=== PATIENT | male | born 1980 | race Caucasian/White ===

== ENCOUNTER 2019-05-29 18:41 | Inpatient (IN) | payer MEDICARE, MEDICAID, SELFPAY ==
[2019-05-29 18:54] VITALS: BP 140/92; PULSE 84; RESP 18; TEMP 36.6; O2SAT 98; BMI 33.5
--- NOTE | 2019-05-29 18:59 | ECG_ITS ---
Measurements Intervals [place] Rate: 75 P: 67 DE: 170 QRS: 46 QRSD: 91 T: 52 QT: 353 QTc: 397 SINUS RHYTHM Compared to ECG 07/23/2018 01:08:38 No significant changes Electronically Signed On 05-30-2019 8:21:28 CDT by Laz Vazquez M.D. [email or web address]
[2019-05-29 19:10] LABS: Basophils # 0.1 10^3/uL (0.0-0.1); Basophils % 0.6 %; Eosinophils # 0.2 10^3/uL (0.0-0.8); Hematocrit 40.8 % (42.0-52.0); Hemoglobin 12.9 g/dL (11.7-16.6); Lymphocytes # 4.2 10^3/uL (0.8-4.8); Lymphocytes % 35.9 %; Mean Corpuscular HGB Conc 31.6 g/dL (30.0-36.0); Mean Corpuscular Hemoglobin 25.9 pg (28.0-34.0); Mean Corpuscular Volume 81.8 fL (80-94); Mean Platelet Volume 11.3 fL (7.4-10.4); Monocytes # 0.7 10^3/uL (0.2-0.9); Monocytes % 5.7 %; Neutrophils # 6.6 10^3/uL (1.8-7.7); Neutrophils % 55.5 %; Nucleated Red Blood Cells % 0 %; Platelet Count 290 10^3/cmm (130-400); Red Blood Count 4.99 10^6/uL (4.1-5.3); Red Cell Distribution Width 16.6 % (12.1-15.1); White Blood Count 11.8 10^3/uL (4.0-10.0)
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
--- NOTE | 2019-05-29 19:30 | PC.NURSE ---
Patient denies suicidal ideation, no extra precautions taken at this time
[2019-05-29 19:51] LABS: Amphetamines Screen Urine Negative (Negative); Barbiturates Screen Urine Negative (Negative); Benzodiazepines Screen Urine Negative (Negative); Cocaine Screen Urine Negative (Negative); Opiate Screen Urine Negative (Negative); PCP Screen Urine Negative (Negative); THC Screen Urine Positive (Negative)
[2019-05-29 19:51] LABS: Alanine Aminotransferase 15 U/L (0-41); Albumin Level 4.7 g/dL (3.5-5.2); Alkaline Phosphatase 83 IU/L (40-130); Anion Gap 17.5 (5-19); Aspartate Amino Transferase 22 U/L (0-40); Blood Urea Nitrogen 12 mg/dL (6-20); Calcium 10.3 mg/dL (8.5-10.5); Carbon Dioxide 23 mmol/L (22-29); Chloride 101 mmol/L (98-107); Globulin 3.5 g/dL (1.3-4.6); Glomerular Filtration Rate 68.5 mL/min (90-130); Glucose 124 mg/dL (65-115); Osmolality Calculated 284 mOsm/kg (285-295); Phenytoin Dilantin 0.8 ug/mL (10-20); Potassium 3.5 mmol/L (3.5-5.1); Sodium 138 mmol/L (136-145); Thyroid Stimulating Hormone 0.84 uIU/mL (0.27-4.20); Total Bilirubin 0.4 mg/dL (0.15-1.2); Total Protein 8.2 g/dL (6.6-8.7); Valproic Acid Level 2.8 mcg/mL (50-100)
[2019-05-29 19:52] LABS: Lithium 0.1 mmol/L (0.6-1.2)
[2019-05-29 19:54] LABS: Acetaminophen < 5.0 ug/mL (10-30); Alcohol Level < 10 mg/dL (0-10); Salicylate < 0.3 mg/dL (3-10)
[2019-05-29 20:59] VITALS: BP 133/84; PULSE 84; RESP 17; TEMP 37.4; O2SAT 97
[2019-05-30] MEDS: acetaminophen 325 mg Tablet 650 MG PO (03:30)
[2019-05-30] MEDS: diphenhydrAMINE 50 mg Capsule PO (03:35)
[2019-05-30 06:00] VITALS: BP 124/84; PULSE 77; RESP 17; TEMP 36.8; O2SAT 97
[2019-05-30] MEDS: nicotine 21 mg Patch 1 PATCH TRANSDERMA (08:47)
[2019-05-30] MEDS: fixodent 39 gm Tube 1 APPLIC DENTAL (09:15)
[2019-05-30 13:11] VITALS: BP 120/80; PULSE 87; RESP 18; TEMP 36.8
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
[2019-05-30 19:59] LABS: Valproic Acid Level 2.8 mcg/mL (50-100)
[2019-05-30 20:59] VITALS: BP 131/91; PULSE 76; RESP 20; TEMP 36.9; O2SAT 97
[2019-05-30] MEDS: propranolol 20 mg Tablet PO (21:00)
[2019-05-30] MEDS: trazodone 50 mg Tablet PO (21:01)
[2019-05-31] MEDS: haloperidol 5 mg Tablet PO ×3 (02:46→21:24)
[2019-05-31 06:00] VITALS: RESP 18
[2019-05-31] MEDS: fixodent 39 gm Tube 1 APPLIC DENTAL (06:10)
--- NOTE | 2019-05-31 07:59 | PC.NURSE ---
PRN HALDOL HALDOL 5MG PO PER PT C/O AGITATION/ANXIETY. WILL CONTINUE TO MONITOR FOR MEDICATION EFFECTIVENESS.
--- NOTE | 2019-05-31 09:00 | PC.NURSE ---
Addendum entered by Le Epstein LPN 05/31/19 10:40: RESPIRATIONS EVEN AND UNLABORED. Original Note: PRN HALDOL FOLLOW UP MEDICATION EFFECTIVE. PATIENT RESTING IN BED. RWE
[2019-05-31] MEDS: propranolol 20 mg Tablet PO ×3 (09:06→21:24)
[2019-05-31] MEDS: nicotine 21 mg Patch 1 PATCH TRANSDERMA (09:06)
[2019-05-31] MEDS: divalproex ER 500 mg Tablet (24H) PO (09:06)
[2019-05-31 13:36] VITALS: BP 125/90; PULSE 78; RESP 78; TEMP 37.3; O2SAT 97
--- NOTE | 2019-05-31 14:05 | PC.SOCIAL ---
Important Medicare Message Reviewed page 1 & 2 of Important Medicare Message with patient, verbalized understanding and signed. Copy in chart and original to patient.
--- NOTE | 2019-05-31 15:31 | P.PN_ITS ---
Subjective NPU Subjective: Interval history: Patient Admits thatHe is primarily here for psychosocial reasons. We discussed his history at length. He tends to minimize mental health issues but it is also true that there is no consistent pattern behind his admissions and observed mental health behaviors. He objects to being characterized as being someone who is explosive or impulsive under emotional influences. He does not endorse the presence of symptoms and signs that would be consistent with nannette. He claims to have no idea what any of the medications are supposed to do that he has been treated with. He does admit to having some unusual perceptions which challenge his reality testing but otherwise does not give specific history of jennifer psychosis. Mental Status Exam MSE Comments: This is a well-nourished, well-developed, white male, with adequate dress, grooming, and eye contact. No abnormal movements. Cooperative with exam in no acute distress. Speech was normal rate and decreased volume. Mood described as anxious; affect congruent. Thought process, organized. Thought content: patient denied any suicidal or homicidal ideation, there were no delusions reported or noted, patient denied any auditory or visual hallucinations. Attention, concentration, and memory appear intact but were not formally tested. He is alert and oriented times three. Insight and judgment are fair. Cognition: Level of Consciousness: Awake, Alert, Appropriate and Follows Commands Patient Cognition Impaired: Yes Ability to Follow Directions: Good Patient Orientation (long list): Person, Place and Time Comprehension Ability: Understands Concepts Hallucination Type: None Delusion Description: Not Present Thought Process: Appropriate Affect: Affect Description: Appropriate Depressive Symptoms: Hopelessness, Increased Anxiety and Unhappiness Behavior: Patient Behavior: Appropriate and Cooperative Speech Pattern: Appropriate and Clear Vitals/I&O/Wt Last Vital Signs Temp 99.1 F 05/31/19 13:36 Pulse 78 05/31/19 13:36 Resp 78 H 05/31/19 13:36 BP 125/90 05/31/19 13:36 Pulse Ox 97 05/31/19 13:36 Weight last 48 hrs Weight 110.733 kg Weight 108.862 kg Data NPU : 05/29/19 19:03 05/29/19 19:03 A&P Assessment and plan (1) Acute anxiety: This is a 38 year old, white male, with a long history of mental health issues and trauma, likely consistent with history of post traumatic reactions, without current jennifer trauma response, who presents with low mood and some responses consistent with personality disorder, with a history of obsessive compulsive disorder, Asperger?s, and other issues in his life, who presents open to considering different medication options. Was able to get collateral information that lamictal has been tried at fairly significant doses. Continue current medication, except: Stop Depakote ER Continue Propranolol 20 mg po tid. Continue Lamictal 25 mg twice a day. Potential benefits and side effects of this medication were discussed in detail including its potential for causing Lara-Steve syndrome. Contingency plan for the development of a rash or Intal oral and unexpected side effects is discontinuation. Encourage individual, group, and milieu therapy. Continue q-15 minute checks for safety. Will work with social work team for appropriate outpatient follow up. Status: Acute (2) Depression: Status: Acute Qualifiers: Depression Type: unspecified Qualified Code(s): F32.9 - Major depressive disorder, single episode, unspecified (3) PTSD (post-traumatic stress disorder): Status: Acute (4) Cluster B personality disorder in adult: Status: Acute Involuntary Hold Information 96 Hour Hold: 96 Hour Involuntary Admission: No Attestations NPU Medical Necessity Statement*: Patient will remain in the hospital another 1-2 nights for medication efficacy and tolerability assessment. 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
[2019-05-31] MEDS: OLANZapine ODT 5 MG TABLET PO (15:41)
--- NOTE | 2019-05-31 15:43 | PC.NURSE ---
PRN ZYPREXA ZYDIS ZYPREXA ZYDIS 5MG PO PER PATIENT C/O ANXIETY. WILL CONTINUE TO MONITOR FOR MEDICATION EFFECTIVENESS.
--- NOTE | 2019-05-31 16:45 | PC.NURSE ---
PRN ZYPREXA ZYDIS FOLLOW UP MEDICATION EFFECTIVE. NO FURTHER C/O ANXIETY.
[2019-05-31] MEDS: lamoTRIgine 25 mg Tablet PO (17:33)
[2019-05-31 21:10] VITALS: BP 112/76; PULSE 63; RESP 21; TEMP 37.1; O2SAT 98
[2019-05-31] MEDS: hyDROXYzine 25 mg Capsule 50 MG PO (21:24)
--- NOTE | 2019-05-31 21:25 | PC.NURSE ---
P given scheduled propranolol, and PRN med per pt request of visteril and haldol to help with sleep.
[2019-06-01 06:00] VITALS: BP 109/74; PULSE 64; RESP 18; TEMP 36.9; O2SAT 99
[2019-06-01] MEDS: lamoTRIgine 25 mg Tablet PO (09:08)
[2019-06-01] MEDS: propranolol 20 mg Tablet PO (09:08)
[2019-06-01] MEDS: nicotine 21 mg Patch 1 PATCH TRANSDERMA (11:20)
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
[2019-06-01 13:10] VITALS: BP 109/74; PULSE 64; RESP 18; TEMP 36.9; O2SAT 99
== END 2019-06-01 13:35 | disposition home or self-care (01) | DRG 880 ==
LOC: ER 19:16 → NP 20:11
PROVIDERS: Admitting Provider Psychiatry & Neurology Psychiatry; Emergency Provider Emergency Medicine; PCP Nurse Practitioner Family; Visit Provider Psychiatry & Neurology Psychiatry
DX: F41.8 Other specified anxiety disorders (principal); F43.11 Post-traumatic stress disorder, acute; F60.89 Other specific personality disorders; F12.10 Cannabis abuse, uncomplicated
CPT/HCPCS: 12345; 36415; 80053; 80156; 80164; 80178; 80185; 80306; 80307; 84443; 85025; 93005; 99284; A9270; Q0163

== ENCOUNTER → 2019-12-21 14:35 | Outpatient (BNVA) | payer MEDICARE, MEDICAID, SELFPAY | PROVIDERS: PCP Nurse Practitioner Family; Visit Provider Internal Medicine | DX: Z11.59 Encounter for screening for other viral diseases (principal); R11.10 Vomiting, unspecified | CPT/HCPCS: 87635 ==

== ENCOUNTER 2019-12-24 09:24 | Day surgery (SDC) | payer MEDICARE, MEDICAID, SELFPAY ==
[2019-12-23 07:48] VITALS: BMI 36.9
--- NOTE | 2019-12-24 09:10 | W.PM.OPSUD ---
Surgery/Procedure H&P Update DATE OF PROCEDURE: December 24, 2019 DATE H&P PERFORMED: 12/21/19 PLANNED PROCEDURE: Operation Date: 12/24/19 10:30 Proposed Procedures p EGD 90114 R11.10(Not Applicable) - Aron Farmer MD
[2019-12-24 09:55] VITALS: BP 125/82; PULSE 89; RESP 18; TEMP 36.8; O2SAT 97
[2019-12-24] MEDS: sodium chloride 0.9% 1,000 ML 30 ML IV (10:00)
--- NOTE | 2019-12-24 10:04 | ANES.PREANE2 ---
Pre-Anesthetic Assessment Pre-Anesthetic Assessment: Height/Weight: Height 1.8 m Weight 120.202 kg Temp Pulse Resp BP Pulse Ox 98.2 F 89 18 125/82 97 12/24/19 09:55 12/24/19 09:55 12/24/19 09:55 12/24/19 09:55 12/24/19 09:55 Preop Diagnosis: egd Proposed Procedure: Operation Date: 12/24/19 10:30 Proposed Procedures p EGD 38084 R11.10(Not Applicable) - Aron Farmer MD Familial anesthetic complications: Woke up during his ECTs Was Beta Elmer taken within 24 hours: Yes Last intake: Intake Last Liquid Date 12/23/19 Last Liquid Time 20:00 Last Solid Date 12/23/19 Last Solid Time 20:00 Social: Social History: Tobacco and No alcohol Exam: Pre-Anes Outpt Exam: alert, oriented x 3 and regular rate & rhythm Additional Exam Findings (including area of procedure): b/l wheeze Airway: Cervical ROM: WNL MP: 3 Dentition: False Pulmonary: Pulmonary: Sleep apnea GI: GI: GERD Metabolic: Metabolic: Morbid obesity Neuropsych: Neuropsych: Anxiety Anesthetic Plan: ASA status: 2 Anesthesia: MAC Risk of > 500 ml blood loss (7ml/kg in children): No Meds/Allergies Current Medications: Current Medications Generic Name Dose Route Start Last Admin Trade Name Freq PRN Reason Stop Dose Admin Sodium Chloride 1,000 mls @ 30 ml s/hr 12/24/19 10:00 12/24/19 10:00 Sodium Chloride 0.9% IV 12/25/19 09:59 30 mls/hr .Q24H AJCEY Administration PFSH Anesthesia PFSH: Medical History (Updated 12/21/19 @ 13:42 by Aron Farmer MD) Irritable bowel syndrome with both constipation and diarrhea Family History Other Heart disease Hypertension Social History Smoking and tobacco status: current every day smoker Alcohol intake: never Household members: family Housing: House Current occupational status: disabled History of recent travel: No Current gender identity: Male Data Anesthesia Cardiac Studies: No Data to Display
[2019-12-24 11:21] VITALS: BP 124/82; PULSE 85; RESP 16; TEMP 36.1; O2SAT 96
[2019-12-24 11:43] VITALS: BP 137/83; PULSE 79; RESP 18; O2SAT 96
--- NOTE | 2019-12-24 11:50 | ANE.PACU2 ---
Inpatient post-anesthesia follow up: Airway intact: Yes Vital signs: Temperature 97 F Pulse Rate 79 Respiratory Rate 18 Blood Pressure 137/83 Pulse Oximetry 96 Oxygen Delivery Me thod Room Air Oxygen Flow Rate Fraction of Inspir ed Oxygen Hydration adequate: Yes Nausea and vomiting: No Pain level: 1 Mental status: Baseline
== END 2019-12-24 11:57 | disposition home or self-care (01) ==
PROVIDERS: PCP Nurse Practitioner Family; Visit Provider Internal Medicine
PROC: 0DJ08ZZ Inspection of Upper Intestinal Tract, Via Natural or Artificial Opening Endoscopic (ICD-10-PCS; CPT 43235; principal; 2019-12-24 10:30)
DX: R11.10 Vomiting, unspecified (principal); G47.30 Sleep apnea, unspecified; K21.9 Gastro-esophageal reflux disease without esophagitis; E66.01 Morbid (severe) obesity due to excess calories; Z68.37 Body mass index [BMI] 37.0-37.9, adult; F41.9 Anxiety disorder, unspecified; F17.210 Nicotine dependence, cigarettes, uncomplicated
CPT/HCPCS: 12345; 43235; J2704; J3010; J7030

== ENCOUNTER 2020-02-28 19:15 | Emergency (ER) | payer MEDICARE, MEDICAID, SELFPAY ==
[2020-02-28 19:24] VITALS: BP 129/85; PULSE 103; RESP 14; TEMP 36.3; O2SAT 98; BMI 38.3
--- NOTE | 2020-02-28 19:56 | ED_ITS ---
HPI - Back Pain/Injury General: Chief Complaint: Back Pain/Injury Stated Complaint: lower back pain Time Seen by Provider: 02/28/20 19:50 History of Present Illness: MD elicited complaint: back pain Pertinent past history: prior back pain Onset (ago): month(s) Timing: intermittent Severity: moderate Similar Symptoms Previously: Yes Quality: dull Location: lumbar spine Radiation: left upper leg Exacerbating factors: movement Relieving factors: immobilization Associated symptoms: Reports no associated symptoms; Deny abdominal pain, chills, fever(s), nausea or vomiting Review of Systems Const: Denies: fever(s), chills or body aches Eyes: Denies: change in vision or blurry vision ENMT: Denies: throat pain or nasal congestion Card: Denies: chest pain or dyspnea on exertion Resp: Denies: dyspnea, productive cough or non-productive cough GI: Denies: abdominal pain, nausea or vomiting : Denies: difficulty urinating Musc: Reports: back pain; Denies: extremity pain Skin/Breast: Denies: rash Neuro: Denies: headache(s) Psych: Denies: anxiety or depression Tang/Lymph: Denies: easy bruising PFSH ED PFSH: Medical History (Updated 02/25/20 @ 12:21 by Jim Jordan MD) Irritable bowel syndrome with both constipation and diarrhea Lumbar disc disease with radiculopathy Family History Other Heart disease Hypertension Social History Smoking and tobacco status: current every day smoker Alcohol intake: never Household members: family Housing: House Current occupational status: disabled History of recent travel: No Current gender identity: Male Physical Exam Const: COMMON NORMALS: no acute distress, average body habitus and patient oriented x3 HENMT: COMMON NORMALS: normocephalic HEAD & SCALP: normal to inspection and normocephalic FACE & SINUS: normal facial exam Eye: COMMON NORMALS: conjunctivae normal GENERAL EYE: appearance normal, both eyes and all related structures CONJUNCTIVA: Yes conjunctivae normal Neck/C-Spine: COMMON NORMALS: no JVD Chest: COMMONS NORMALS: normal inspection of the chest Resp: COMMON NORMALS: normal respiratory effort Cardio: COMMON NORMALS: no JVD GI: COMMON NORMALS: Normal to inspection, nondistended, normoactive bowel sounds present Back/Pelvis: LUMBAR SPINE/LOWER BACK: Yes normal to inspection OTHER: Patient complains of pain with movement left leg he is able ambulate without difficulty Extremity: COMMON NORMALS: normal to inspection and full ROM Neuro: COMMON NORMALS: patient oriented x3 Course Vital Signs: Vital signs: Vital Signs Temperature 97.3 F L 02/28/20 19:24 Pulse Rate 103 H 02/28/20 19:24 Respiratory Rate 14 02/28/20 19:24 Blood Pressure 129/85 02/28/20 19:24 Pulse Oximetry 98 02/28/20 19:24 Discharge Plan Discharge Condition: Good Prescriptions: No Action topiramate [Topamax] 50 mg tablet 50 mg PO BID RF: 0 cyclobenzaprine 10 mg tablet 10 mg PO BID PRN (Reason: muscle spasm) Qty: 14 RF: 0 diclofenac sodium 75 mg tablet,delayed release (DR/EC) 75 mg PO BID Qty: 14 RF: 0 hydrocortisone [Procto-Med HC] 2.5 % cream with perineal applicator 1 applic ND QDAY PRN (Reason: hemorrhoids) Qty: 30 RF: 6 dibucaine 1 % ointment 1 applic topical QID Qty: 30 RF: 4 pantoprazole [Protonix] 40 mg tablet,delayed release (DR/EC) 40 mg PO QDAY Qty: 90 RF: 3 Coding Level of Care Code ED Wellness Nurse Rn for Cricket Mcgowan
[2020-02-28] MEDS: methylPREDNISolone (DEPO) 80 MG/ML INJ 1 mL IM (20:01)
[2020-02-28] MEDS: ketorolac 60 mg/2 mL INJ IM (20:03)
[2020-02-28 20:06] VITALS: PULSE 72; RESP 18; O2SAT 98
== END 2020-02-28 20:07 | disposition home or self-care (01) ==
PROVIDERS: Emergency Provider Nurse Practitioner Family; PCP Nurse Practitioner Family
DX: M54.5 Low back pain (principal); F17.210 Nicotine dependence, cigarettes, uncomplicated
CPT/HCPCS: 12345; 96372; 99281; 99283; J1040; J1885

== ENCOUNTER 2020-03-10 08:38 | Outpatient (CLI) | payer MEDICARE, MEDICAID, SELFPAY ==
--- NOTE | 2020-03-10 08:47 | MR_ITS ---
WS: [id number] MRI LUMBAR SPINE WITH AND WITHOUT CONTRAST. HISTORY: CHRONIC PAIN SYNDROME COMPARISON: 07/28/2008 TECHNIQUE: Sagittal and axial multisequence imaging is submitted. Sagittal and axial T1 fat sat seque nces post-ProHance 17 cc IV. Straightening of the normal lumbar lordosis. Mild disc space narrowing and desiccation at L4-5 and L5 -S1. No marrow edema or fracture. Conus terminates normally at L1. L1-L2: Normal. L2-L3: Normal. L3-L4: Mild annular disc bulging and mild facet and ligamentum flavum hypertrophy. Very mild narrowin g of the foramen. L4-L5: Diffuse annular disc bulging and osteophytic ridging. There is a focal moderate large central disc protrusion which extends into the LEFT lateral recess. Disc is displacing posteriorly the L5 ner ve root. Mild bilateral foraminal stenosis. Mild facet joint arthritis. L5-S1: Diffuse annular disc bulging. Mild osteophytic ridging. Lobulated central broad-based disc pro trusion is contacting the S1 nerve roots bilaterally and extending into the subarticular recesses. Ad ditional moderate bilateral foraminal stenosis. No discitis or osteomyelitis. MR/MR lumbar spine wo/w con [id number] IMPRESSION: 1. Moderate to large central disc protrusion extending into the LEFT lateral r ecess at L4-5 with displacement of the L5 nerve root. This disc protrusion was present on the prior examination but the extent into the LEFT lateral recess bay s increased. 2. Large lobulated central disc protrusion at L5-S1 contacting the S1 nerve ro ots bilaterally and extending into the subarticular recesses. No interval guardado e. 3. Moderate central and bilateral foraminal stenosis at L5-S1.
== END 2020-03-10 08:39 | disposition home or self-care (01) ==
LOC: RADSHAW 08:42
PROVIDERS: PCP Nurse Practitioner Family; Visit Provider Psychologist Group Psychotherapy
DX: G89.4 Chronic pain syndrome (principal); M48.07 Spinal stenosis, lumbosacral region; M51.27 Other intervertebral disc displacement, lumbosacral region; M51.26 Other intervertebral disc displacement, lumbar region
CPT/HCPCS: 72158; A9579

== ENCOUNTER 2020-04-03 11:35 | Outpatient (CLI) | payer MEDICARE, MEDICAID, SELFPAY ==
--- NOTE | 2020-04-03 11:44 | XR_ITS ---
WS: [id number] LUMBAR SPINE FLEXION AND EXTENSION TECHNIQUE: 3 views of the lumbar spine: Lateral neutral, flexion, and extension views. CLINICAL INFORMATION: SPONDYLOLISTHESIS LUMBOSACRAL REGION COMPARISON: None. FINDINGS: S1 is partially lumbarized. Normal lumbar alignment on the neutral view. No instability on the flexion and extension views. Disc space narrowing worse at L4-5 and L5-S1. Mini mal retrolisthesis L4 on L5. Moderate facet arthropathy L5-S1. XR/XR lumbar spine f/e only [id number] IMPRESSION: 1. No instability on flexion extension. 2. Disc space narrowing worse at L4-5 and L5-S1. 3. Moderate facet arthropathy L5-S1.
== END 2020-04-03 11:36 | disposition home or self-care (01) ==
LOC: RADWPI 11:42
PROVIDERS: PCP Nurse Practitioner Family; Visit Provider Nurse Practitioner
DX: M43.17 Spondylolisthesis, lumbosacral region (principal); M47.817 Spondylosis without myelopathy or radiculopathy, lumbosacral region
CPT/HCPCS: 72120

== ENCOUNTER 2020-07-08 11:28 | Inpatient (IN) | payer MEDICARE, MEDICAID, SELFPAY ==
[2020-07-08 11:33] VITALS: BP 130/96; PULSE 94; RESP 18; TEMP 36.4; O2SAT 98; BMI 36.2
[2020-07-08 11:50] LABS: Basophils # 0.1 10^3/uL (0.0-0.1); Basophils % 0.8 %; Eosinophils # 0.3 10^3/uL (0.0-0.8); Eosinophils % 2.6 %; Hematocrit 40.7 % (42.0-52.0); Hemoglobin 12.7 g/dL (11.7-16.6); Lymphocytes # 3.2 10^3/uL (0.8-4.8); Lymphocytes % 30.5 %; Mean Corpuscular HGB Conc 31.2 g/dL (30.0-36.0); Mean Corpuscular Hemoglobin 24.7 pg (28.0-34.0); Mean Platelet Volume 10.5 fL (7.4-10.4); Monocytes # 0.8 10^3/uL (0.2-0.9); Monocytes % 7.2 %; Neutrophils % 58.5 %; Nucleated Red Blood Cells % 0 %; Platelet Count 328 10^3/cmm (130-400); Red Blood Count 5.15 10^6/uL (4.1-5.3); Red Cell Distribution Width 17.7 % (12.1-15.1); White Blood Count 10.6 10^3/uL (4.0-10.0)
--- NOTE | 2020-07-08 12:04 | W.ED.PSYCH ---
HPI - Psych General: Chief Complaint: Psychiatric Symptoms Stated Complaint: SI Time Seen by Provider: 07/08/20 11:32 History of Present Illness: HPI Narrative: The patient is a 39-year-old male with past medical history depression who comes to the ER complaining that he was arguing with his mother this morning and said he did not feel like living anymore. His mother called the police who arrived and he mentioned to them that he felt suicidal as well. In the ED he denies feeling that way however he does feel depressed. He mentions he has a child who a month ago which has been stressing him and he has not been dealing with it appropriately. Admits to marijuana use. No alcohol or other drugs. MD complaint: feels depressed Duration: constant History of same: Yes Relieving factors: none Exacerbating factors: none Context: recent drug abuse (thc) and significant life stressor Associated psychiatric symptoms: depression and suicidal ideation Associated symptoms: Reports depression and suicidal ideation Review of Systems General: Reports: 10 or more systems reviewed and unremarkable except in HPI and below Const: Denies: fatigue Eyes: Denies: change in vision, blurry vision or eye redness ENMT: Denies: throat pain, swelling of lips/tongue, ear or mastoid pain or nasal congestion Card: Denies: chest pain, palpitations, irregular heart rhythm, edema, dyspnea on exertion or orthopnea Resp: Denies: dyspnea, productive cough or non-productive cough GI: Denies: abdominal pain, diarrhea or GI cramping : Denies: flank pain, urinary frequency or urinary urgency Musc: Denies: neck pain, back pain, extremity pain, joint pain, joint redness, limited range of motion or muscle weakness Skin/Breast: Denies: rash, pruritus, erythema, skin pain or skin tenderness Neuro: Denies: headache(s), numbness in extremities, weakness in extremities, sensory changes, difficulty walking, dizziness, confusion or Slurred speech present Psych: Reports: depression and suicidal ideation Endo: Denies: polyuria All/Imm: Denies: urticaria, throat swelling or tongue swelling PFS ED PFSH: Medical History (Updated 07/08/20 @ 12:11 by Kyle Recinos MD) Irritable bowel syndrome with both constipation and diarrhea Lumbar disc disease with radiculopathy Family History Other Heart disease Hypertension Social History Smoking and tobacco status: current every day smoker Alcohol intake: never Household members: family Housing: House Current occupational status: disabled History of recent travel: No Current gender identity: Male Physical Exam Const: COMMON NORMALS: no acute distress, average body habitus, patient oriented x3, no limitations, healthy appearing, alert and well nourished GENERAL APPEARANCE: cooperative, comfortable, well kempt and well developed ORIENTATION/CONSCIOUSNESS: Yes awake, Yes oriented to person, Yes oriented to place and Yes oriented to time HENMT: COMMON NORMALS: normocephalic, external ears normal and Normal external nose present HEAD & SCALP: normal to inspection and normocephalic NOSE: Normal external nose present EXTERNAL EAR: Yes external ears normal MOUTH: Normal oral and palatal mucosa present THROAT: posterior oropharynx normal Eye: COMMON NORMALS: Equal, round and reactive pupils present and EOMs intact bilaterally GENERAL EYE: appearance normal, both eyes and all related structures PUPIL: Yes Equal, round and reactive pupils present Neck/C-Spine: COMMON NORMALS: full ROM, no lymphadenopathy, no meningeal signs and no JVD GENERAL: Yes normal visual inspection Lymph: LYMPHATIC: no lymphadenopathy noted Chest: COMMONS NORMALS: normal inspection of the chest and normal palpation of entire chest wall Resp: COMMON NORMALS: normal respiratory effort, No retractions, No use of accessory muscles, clear to auscultation bilaterally and percussion normal EFFORT & INSPECTION: Yes able to speak in complete sentences AUSCULTATION: clear to auscultation bilaterally PERCUSSION: percussion normal Cardio: COMMON NORMALS: no JVD, regular rate, regular rhythm, S1 normal heart sound present, S2 normal heart sound present and Peripheral pulses 2+ throughout RATE: regular rate RHYTHM: regular rhythm HEART SOUNDS: S1 normal heart sound present and S2 normal heart sound present PERIPHERAL PULSES: Peripheral pulses 2+ throughout GI: COMMON NORMALS: Normal to inspection, nondistended, normoactive bowel sounds present, Soft to palpation, non-tender and no masses INSPECTION: Yes normal to inspection PALPATION: Yes Soft to palpation : COMMON NORMALS: Yes no CVA tenderness BLADDER/KIDNEY EXAM: Yes no CVA tenderness Back/Pelvis: COMMON NORMALS: no CVA tenderness, thoracic and lumbar spine normal to inspection, no thoracic nor lumbar tenderness and thoraco-lumbar ROM normal Extremity: COMMON NORMALS: normal to inspection, full ROM, capillary refill normal, no joint enlargement and no pedal edema GENERAL: Yes normal exam except as noted Neuro: COMMON NORMALS: patient oriented x3, CN's II-XII intact bilaterally, moves all extremities, no focal motor deficits, no sensory deficits noted and gait normal SENSORIUM/ORIENTATION: Yes alert, Yes oriented to person, Yes oriented to place and Yes oriented to time MENINGEAL SIGNS: Yes no meningeal signs Psych: COMMON NORMALS: mental status grossly normal, Normal thought process present, cooperative, normal affect and speech normal APPEARANCE: Yes well kempt ATTITUDE: Yes calm SPEECH: Yes normal speech THOUGHT PROCESS: Normal thought process present Skin: COMMON NORMALS: no rashes or lesions noted GENERAL SKIN EXAM: no rashes or lesions noted Course Vital Signs: Vital signs: Vital Signs Temperature 97.5 F L 07/08/20 11:33 Pulse Rate 94 07/08/20 11:33 Respiratory Rate 18 07/08/20 11:33 Blood Pressure 130/96 07/08/20 11:33 Pulse Oximetry 98 07/08/20 11:33 MDM - Psych MDM Narrative: Medical decision making narrative: The patient comes to the ER complaining of depression. At home he got in an argument with his mother and admitted he felt suicidal. She called the police and he admitted suicidal thoughts to them as well. In the ED he denies it. He has a significant life stressor one of his children tragically a month ago and he has not been dealing with it appropriately. Police filled out 96-hour paperwork. He will be admitted. Dr. Sebastian accepts for care. Lab Data: Labs: Lab Results 07/08/20 07/08/20 07/08/20 Range/Units 11:42 11:42 11:52 WBC 10.6 H (4.0-10.0) 10^3/ uL RBC 5.15 (4.1-5.3) 10^6/u L Hgb 12.7 (11.7-16.6) g/dL Hct 40.7 L (42.0-52.0) % MCV 79.0 L (80-94) fL MCH 24.7 L (28.0-34.0) pg MCHC 31.2 (30.0-36.0) g/dL RDW 17.7 H (12.1-15.1) % Plt Count 328 (130-400) 10^3/c mm MPV 10.5 H (7.4-10.4) fL Neut % (Auto) 58.5 % Lymph % (Auto) 30.5 % [place] % (Auto) 7.2 % Eos % (Auto) 2.6 % Baso % (Auto) 0.8 % Neut # (Auto) 6.20 (1.8-7.7) 10^3/u L Lymph # (Auto) 3.2 (0.8-4.8) 10^3/u L [place] # (Auto) 0.8 (0.2-0.9) 10^3/u L Eos # (Auto) 0.3 (0.0-0.8) 10^3/u L Baso # (Auto) 0.1 (0.0-0.1) 10^3/u L Nucleated RBC % (a uto) 0 % Nucleated RBCs # 0.0 /100WBC Sodium 139 (136-145) mmol/L Potassium 3.5 (3.5-5.1) mmol/L Chloride 104 (98-107) mmol/L Carbon Dioxide 21 L (22-29) mmol/L Anion Gap 17.5 (5-19) BUN 11 (6-20) mg/dL Creatinine 1.1 (0.7-1.2) mg/dL GFR Calculation 75.3 L (90-130) mL/min Glucose 111 (65-115) mg/dL Calculated Osmolal ity 288 (285-295) mOsm/k g Calcium 9.5 (8.5-10.5) mg/dL Total Bilirubin 0.4 (0.15-1.2) mg/dL AST 26 (0-40) U/L ALT 22 (0-41) U/L Alkaline Phosphata se 78 (40-130) IU/L Total Protein 8.2 (6.6-8.7) g/dL Albumin 4.7 (3.5-5.2) g/dL Globulin 3.5 (1.3-4.6) g/dL TSH 0.90 (0.27-4.20) uIU/ mL Urine Color Yellow (Yellow) Urine Appearance Hazy A (CLEAR) Urine pH 6 (5-7) Ur Specific Gravit y 1.015 (1.005-1.030) Urine Protein Trace (Negative) Urine Glucose (UA) Norm (Normal) Urine Ketones Negative (Negative) Urine Blood Neg (Negative) Urine Nitrate Negative (Negative) Urine Bilirubin Neg (Negative) Urine Urobilinogen Norm (Negative) mg/dL Ur Leukocyte Amelie ase Negative (Negative) Urine RBC Rare (0-2) /hpf Urine WBC 0-4 H (0-5) /hpf Ur Squamous Epith Cells Rare (0-5) /hpf Amorphous Sediment Not Reportable Urine Bacteria Trace (NONE) /hpf Urine Mucus 1+ /hpf Salicylates < 0.3 L (3-10) mg/dL Urine Opiates Scre en (Negative) ng/mL Acetaminophen < 5.0 L (10-30) ug/mL Ur Barbiturates Sc reen (Negative) ng/mL Ur Phencyclidine S crn (Negative) ng/mL Ur Amphetamines Sc reen (Negative) ng/mL U Benzodiazepines Scrn (Negative) ng/mL Urine Cocaine Scre en (Negative) ng/mL U Marijuana (THC) Screen (Negative) ng/mL Ethyl Alcohol < 10 (0-10) mg/dL 07/08/ Range/Units 11:52 WBC (4.0-10.0) 10^3/ uL RBC (4.1-5.3) 10^6/u L Hgb (11.7-16.6) g/dL Hct (42.0-52.0) % MCV (80-94) fL MCH (28.0-34.0) pg MCHC (30.0-36.0) g/dL RDW (12.1-15.1) % Plt Count (130-400) 10^3/c mm MPV (7.4-10.4) fL Neut % (Auto) % Lymph % (Auto) % [place] % (Auto) % Eos % (Auto) % Baso % (Auto) % Neut # (Auto) (1.8-7.7) 10^3/u L Lymph # (Auto) (0.8-4.8) 10^3/u L [place] # (Auto) (0.2-0.9) 10^3/u L Eos # (Auto) (0.0-0.8) 10^3/u L Baso # (Auto) (0.0-0.1) 10^3/u L Nucleated RBC % (a uto) % Nucleated RBCs # /100WBC Sodium (136-145) mmol/L Potassium (3.5-5.1) mmol/L Chloride (98-107) mmol/L Carbon Dioxide (22-29) mmol/L Anion Gap (5-19) BUN (6-20) mg/dL Creatinine (0.7-1.2) mg/dL GFR Calculation (90-130) mL/min Glucose (65-115) mg/dL Calculated Osmolal ity (285-295) mOsm/k g Calcium (8.5-10.5) mg/dL Total Bilirubin (0.15-1.2) mg/dL AST (0-40) U/L ALT (0-41) U/L Alkaline Phosphata se (40-130) IU/L Total Protein (6.6-8.7) g/dL Albumin (3.5-5.2) g/dL Globulin (1.3-4.6) g/dL TSH (0.27-4.20) uIU/ mL Urine Color (Yellow) Urine Appearance (CLEAR) Urine pH (5-7) Ur Specific Gravit y (1.005-1.030) Urine Protein (Negative) Urine Glucose (UA) (Normal) Urine Ketones (Negative) Urine Blood (Negative) Urine Nitrate (Negative) Urine Bilirubin (Negative) Urine Urobilinogen (Negative) mg/dL Ur Leukocyte Amelie ase (Negative) Urine RBC (0-2) /hpf Urine WBC (0-5) /hpf Ur Squamous Epith Cells (0-5) /hpf Amorphous Sediment Urine Bacteria (NONE) /hpf Urine Mucus /hpf Salicylates (3-10) mg/dL Urine Opiates Scre en Negative (Negative) ng/mL Acetaminophen (10-30) ug/mL Ur Barbiturates Sc reen Negative (Negative) ng/mL Ur Phencyclidine S crn Negative (Negative) ng/mL Ur Amphetamines Sc reen Negative (Negative) ng/mL U Benzodiazepines Scrn Positive H (Negative) ng/mL Urine Cocaine Scre en Negative (Negative) ng/mL U Marijuana (THC) Screen Positive H (Negative) ng/mL Ethyl Alcohol (0-10) mg/dL Discharge Plan Discharge Patient Disposition: Admitted As Inpatient Admit Provider: Riccardo Sebastian Clinical Impression: Suicidal ideation, Depression Condition: Stable Coding Level of Care Code ED [employer] for Chg Fwd Exam Comprehensive
[2020-07-08 12:10] LABS: Amphetamines Screen Urine Negative (Negative); Barbiturates Screen Urine Negative (Negative); Benzodiazepines Screen Urine Positive (Negative); Cocaine Screen Urine Negative (Negative); Opiate Screen Urine Negative (Negative); PCP Screen Urine Negative (Negative); THC Screen Urine Positive (Negative)
[2020-07-08 12:21] LABS: Add Urine Microscopic? YES; Bilirubin Urine Neg (Negative); Blood Urine Neg (Negative); Glucose Urine UA Norm (Normal); Ketones Urine Negative (Negative); Leukocyte Esterase Urine Negative (Negative); Nitrate Urine Negative (Negative); Protein Urine Trace (Negative); Specific Gravity, Urine 1.015 (1.005-1.030); Urine Appearance Hazy (CLEAR); Urine Color Yellow (Yellow); Urobilinogen Urine Norm (Negative); pH Urine 6 (5-7)
[2020-07-08 12:23] LABS: Add Urine Culture? No; Bacteria Urine TRACE /hpf; Mucus Urine 1+ /hpf; RBC Urine RARE /hpf (0-2); Squamous Epithelial Cell Urine RARE /hpf (0-5); WBC Urine 0-4 /hpf (0-5)
[2020-07-08 12:29] LABS: Alanine Aminotransferase 22 U/L (0-41); Albumin Level 4.7 g/dL (3.5-5.2); Alkaline Phosphatase 78 IU/L (40-130); Anion Gap 17.5 (5-19); Aspartate Amino Transferase 26 U/L (0-40); Blood Urea Nitrogen 11 mg/dL (6-20); Calcium 9.5 mg/dL (8.5-10.5); Carbon Dioxide 21 mmol/L (22-29); Chloride 104 mmol/L (98-107); Globulin 3.5 g/dL (1.3-4.6); Glomerular Filtration Rate 75.3 mL/min (90-130); Glucose 111 mg/dL (65-115); Osmolality Calculated 288 mOsm/kg (285-295); Potassium 3.5 mmol/L (3.5-5.1); Sodium 139 mmol/L (136-145); Total Bilirubin 0.4 mg/dL (0.15-1.2); Total Protein 8.2 g/dL (6.6-8.7)
[2020-07-08 12:31] LABS: Acetaminophen < 5.0 ug/mL (10-30); Alcohol Level < 10 mg/dL (0-10); Salicylate < 0.3 mg/dL (3-10)
[2020-07-08 13:29] VITALS: BP 141/99; PULSE 81; RESP 16; O2SAT 99
[2020-07-08 14:22] VITALS: BP 136/100; PULSE 82; RESP 20; TEMP 37; O2SAT 97
[2020-07-08 20:11] VITALS: BP 129/87; PULSE 93; RESP 18; TEMP 36.4; O2SAT 96
[2020-07-08] MEDS: trazodone 50 mg Tablet PO (20:37)
[2020-07-08] MEDS: OLANZapine 5 mg ODT PO (20:37)
--- NOTE | 2020-07-08 20:40 | PC.NURSE ---
Pt noted with increased anxiety over family issues. Charge Nurse doing shift assessment, requested pt be given zyprexa 5mg po for anxiety and trazodone 50mg po to help pt sleep.
--- NOTE | 2020-07-08 21:45 | PC.NURSE ---
Pt noted to resting quietly with both eyes closed at this time.
--- NOTE | 2020-07-09 00:13 | PC.NURSE ---
Addendum entered by Mikala Albarado RN 07/09/20 00:34: Pt tolerated Zyprexa Zydis 5mg PO and Trazodone 50mg PO well. He is no longer tearful and is asleep at this time. Original Note: PM Assessment PT is resting in his room at time of assessment, he is laying in the dark, facing the wall, verbally able to get his attention. Pt sat on the edge of the bed, he is tearful, withdrawn, appears sad. Denies SI/HI, states, I'm depressed. Pt is rocking, upset, and has isolated since he was admitted on the unit this afternoon. Offered pt a snack, initially refused, but accepted propr to end of interaction. Pt sat up, his NPU scrub top is intentionally torn all the way down to the last seam, pt said he did not mean to tear it but couldn't help it. Pt is angry, confused, feels hopeless, and says he can not grieve. Pt does not feel that he belongs anywhere, informed nurse of his diagnosis of autism spectrum disorder and the recent loss of his child. One of his small children shot the other while playing cowboys and indians, the patient said, What child dies playing cowboys and Indians in 2020 . Pt is angry at the ex-girlfriend, says she neglected my son, she has the other one also, and she treats them differently than her children from this current relationship. He is angry that she has not allowed his attendance at the of the child, and the limited interaction allowed with his other son.Pt became angry, red in the face, stated, They tried to change his last name, they put the other kamran name on [employer]! He broke down in tears, gasping, holding his left side while nearly hyperventilating. Nurse de-escalated pt, sat with him in silence, evaluated his breathing pattern, and his level of escalation. Med nurse came into the room, RN offered medication for anxiety and sleep. Pt agreed to take Zyprexa Zydis to stop the racing thoughts and trazodone to help him rest. Med nurse administered these PO medications, and pt began to calm some. Pt has a difficult time communicating, worries that he is not understood, and stated, I can not give you much information, I don't communicate in sound bites when Nurse clarified what he meant by this, pt stated, IF I start to talk, it will just keep coming out, one subject, then another, and it wont stop. Pt states, My thoughts never stop, they continue and I can not sleep. Insomnia has been an issue for this pt since 2018. Pt is frustrated by the 96hr order, I do not understand why my mom put me in this unit. then began to sob loudly, shaking uncontrollably, and leaned into nurses arms seeking human touch. Pt says, Why can't she(MOM) hold me, hug me, or even look me in the eye? Pt mood changed from grief to anger, She killed my son with neglect, because he is like me, and she knows it. Spoke for several minutes, evaluated his condition, and pt his expressed loss of sleep. He talked about feeling fearful of what will become of him, if I lost my mother. Pt struggles to understand and react to social cues. He feels like he can not trust anyone because he can not tell if they are sincere or trying to take advantage of him. Pt is polite, a little guarded at this time, stated he does not want to take alot of medications. Nurse validated his statement, Provided bathing necessities, new scrubs, and increased rounding on pt. He is sleeping at this time.
[2020-07-09 06:00] VITALS: BP 137/96; PULSE 100; RESP 17; TEMP 36.7; O2SAT 97
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
[2020-07-09 14:00] VITALS: BP 127/88; PULSE 95; RESP 18; TEMP 37.2; O2SAT 97
[2020-07-09] MEDS: trazodone 50 mg Tablet PO (20:26)
[2020-07-09] MEDS: OLANZapine 5 mg ODT PO (20:26)
[2020-07-09 20:46] VITALS: BP 128/78; PULSE 81; RESP 15; TEMP 36.6; O2SAT 97
--- NOTE | 2020-07-09 21:30 | PC.NURSE ---
Pt stated he rested so well last son, requested if he could have the same meds if possible Stated he hasn't slept that well in a long time. Zyprexa 5mg po for anxiety, and Trazodone 50mg po for sleep given.
--- NOTE | 2020-07-09 21:44 | PC.NURSE ---
Pt is in room resting quietly with both eyes closed.
[2020-07-10 06:00] VITALS: BP 129/81; PULSE 98; RESP 15; TEMP 36.3; O2SAT 97
--- NOTE | 2020-07-10 10:30 | PM.NPN ---
Subjective NPU Subjective: Interval history: Mendoza presents today reporting that there are no significant changes. He continues to have a little interest in moving forward on any specific medication. I discussed my review of his records which suggest that he has been on many medications though the most recent one with Dr. Montague was Lamictal is unclear that he never had a clear trial of the medication. I was able to see in his last physicians record to [facility] the issues brought up about getting a second opinion. And there were concerns about him not being forthright with information leading to errant diagnoses. He reports that eating and sleeping okay. Mental Status Exam MSE Comments: This is a well-nourished, well-developed, white male, with hospitalist on with adequate grooming, and eye contact. No abnormal movements. Cooperative with exam in no acute distress. Speech was normal rate and decreased volume. Mood described as okay I guess; affect slightly subdued. Thought process, organized. Thought content: patient denied any suicidal or homicidal ideation, there were no delusions reported or noted, patient denied any auditory or visual hallucinations. Attention, concentration, and memory appear intact but none were formally tested. He is alert and oriented times three. Insight and judgment are fair, impulse control appears limited. Vitals/I&O/Wt Last Vital Signs Temp 97.4 F L 07/10/20 06:00 Pulse 98 07/10/20 06:00 Resp 15 07/10/20 06:00 BP 129/81 07/10/20 06:00 Pulse Ox 97 07/10/20 06:00 Weight last 48 hrs Weight 117.934 kg Weight 117.934 kg Data NPU : 07/08/20 11:42 07/08/20 11:42 A&P Additional A&P Information (1) Suicidal ideation: (2) Depression: (3) Cluster B personality disorder in adult: (4) Bereavement: (5) Parent-child relational problem: (6) Partner relational problem: Additional A&P Information This is a 39-year-old white male with a long history of mental health and addiction issues who presents on a 96-hour hold against the backdrop of conflict with his significant others in his life as well as dealing with the recent sudden of his son with some reported changes in his treatment not currently on medication. 1. Continue current medication. We will continue to explore possible medications. 2. Continue every 15 minute checks for safety. 3. Encourage individual, group and milieu therapies. 4. Encourage sober living treatment after discharge at the highest level of care to which he is willing to commit. 5. We will get collateral information and determine the need for forced hospitalization in keeping with his 96-hour hold. Involuntary Hold Information 96 Hour Hold: 96 Hour Involuntary Admission: Yes 96 Hour Hold Ending Date: 07/14/20 96 Hour Hold Ending Time: 12:01 Attestations NPU Medical Necessity Statement*: Inpatient hospitalization is medically necessary and the clinically appropriate intervention at this time. We will monitor medications and make changes as indicated. Likely length of stay 1-3 days. Coding Level of Care Code Acute Cement Mason Maintenance for Cricket Mcgowan
[2020-07-10 13:07] VITALS: BP 129/85; PULSE 86; RESP 16; TEMP 36.8; O2SAT 96
--- NOTE | 2020-07-10 18:13 | PC.RESP ---
Smoking Cessation information sent to patient.
[2020-07-10 20:05] VITALS: BP 122/87; PULSE 88; RESP 16; TEMP 36.9; O2SAT 96
[2020-07-11] MEDS: hyDROXYzine 25 mg Capsule 50 MG PO (02:42)
--- NOTE | 2020-07-11 02:42 | PC.PHAR ---
PRN Visteril 50mg PO given for anxiety. Pt is returning to bed. Will reassess pt condition for effectiveness of medication
[2020-07-11 06:00] VITALS: BP 122/88; PULSE 88; RESP 15; TEMP 36.3; O2SAT 98
[2020-07-11] MEDS: fixodent 39 gm Tube 1 APPLIC DENTAL (06:11)
--- NOTE | 2020-07-11 08:36 | PC.SOCIAL ---
*IMM* Patient was gave the important message from Medicare. Initialled and placed in the chart.
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
[2020-07-11 16:18] VITALS: BP 122/88; PULSE 88; RESP 15; TEMP 36.3; O2SAT 98
== END 2020-07-11 16:30 | disposition home or self-care (01) | DRG 881 ==
LOC: ER 12:11 → NP 13:20
PROVIDERS: Admitting Provider Psychiatry & Neurology Psychiatry; Emergency Provider Family Medicine; PCP Nurse Practitioner Family; Visit Provider Psychiatry & Neurology Psychiatry
DX: F32.9 Major depressive disorder, single episode, unspecified (principal); R45.851 Suicidal ideations; F12.10 Cannabis abuse, uncomplicated; K58.2 Mixed irritable bowel syndrome; M54.16 Radiculopathy, lumbar region; Z63.0 Problems in relationship with spouse or partner; Z63.8 Other specified problems related to primary support group; Z62.820 Parent-biological child conflict; Z63.4 Disappearance and death of family member; I10 Essential (primary) hypertension; F17.210 Nicotine dependence, cigarettes, uncomplicated; F60.89 Other specific personality disorders
CPT/HCPCS: 80053; 80306; 80307; 81001; 84443; 85025; 99285

== ENCOUNTER → 2021-03-06 09:32 | Outpatient (BNVA) | payer MEDICARE, MEDICAID, SELFPAY | PROVIDERS: PCP Nurse Practitioner Family; Visit Provider Psychiatry & Neurology Psychiatry | DX: F43.10 Post-traumatic stress disorder, unspecified (principal); F32.A Depression, unspecified; F84.0 Autistic disorder; F60.7 Dependent personality disorder | CPT/HCPCS: 90792 ==

== ENCOUNTER → 2021-04-20 11:22 | Outpatient (BNVA) | payer MEDICARE, MEDICAID, SELFPAY | PROVIDERS: PCP Nurse Practitioner Family; Visit Provider Surgery | DX: Z11.52 Encounter for screening for COVID-19 (principal) | CPT/HCPCS: 87635 ==

== ENCOUNTER → 2021-05-01 13:50 | Outpatient (BNVA) | payer MEDICARE, MEDICAID, SELFPAY | PROVIDERS: PCP Nurse Practitioner Family; Visit Provider Psychiatry & Neurology Psychiatry | DX: F32.9 Major depressive disorder, single episode, unspecified (principal); F43.10 Post-traumatic stress disorder, unspecified; F84.0 Autistic disorder; F60.9 Personality disorder, unspecified; F60.7 Dependent personality disorder | CPT/HCPCS: 99214 ==

== ENCOUNTER → 2021-05-04 09:18 | Outpatient (BNVA) | payer MEDICARE, MEDICAID, SELFPAY | PROVIDERS: PCP Nurse Practitioner Family; Visit Provider Surgery | DX: Z11.52 Encounter for screening for COVID-19 (principal) | CPT/HCPCS: 87635 ==

== ENCOUNTER 2021-05-10 06:58 | Day surgery (SDC) | payer MEDICARE, MEDICAID, SELFPAY ==
[2021-05-09 12:33] VITALS: BMI 32.8
--- NOTE | 2021-05-09 12:39 | PC.NURSE ---
Patient states that they see someone from [facility] [place] and declines to answer the questions for suicide assessment.
[2021-05-10 07:10] VITALS: BP 144/104; PULSE 79; RESP 18; TEMP 36; O2SAT 97
--- NOTE | 2021-05-10 07:27 | W.PM.OPSFHP ---
Same Day Surgery H&P Indication for Procedure/HPI DATE OF PROCEDURE: May 10, 2021 CHIEF COMPLAINT/INDICATIONFOR SURGICAL PROCEDURE: Colonoscopy with excision of skin lesion PREOP DIAGNOSIS: diagnostic PLANNED PROCEDURE: Operation Date: 05/10/21 08:10 Proposed Procedures p Excision skin tag right ear 20690/l91.8(Right) - Noel Hall MD s Colonoscopy 41142/z86.010(Not Applicable) - Noel Hall MD Medications/Allergies* Allergies/Adverse Reactions Allergy/AdvReac Type Severity Reaction Status Date / Time No Known Allergies Allergy Verified 05/01/21 14:03 Pertinent History/Comorbid Conditions* Medical History (Updated 04/17/21 @ 09:42 by Noel Hall MD) Autism Autism spectrum disorder 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 Depression GERD (gastroesophageal reflux disease) Insomnia Irritable bowel syndrome with both constipation and diarrhea Lumbar disc disease with radiculopathy Psychiatric care PTSD (post-traumatic stress disorder) Surgical History (Updated 04/17/21 @ 09:49 by Noel Hall MD) H/O esophagogastroduodenoscopy History of colonoscopy with polypectomy 3-5yrs Family History (Updated 07/09/20 @ 00:12 by Mikala Albarado RN) Relationship problem between parent and child Mother Autism Son Heart disease Grief at loss of child Victim of abandonment in childhood Hypertension Social History Smoking and tobacco status: current every day smoker cigarettes Packs smoked per day: 1 Quit status (tobacco): not considering quitting Smoking risk assessment/counseling performed?: Yes Alcohol intake: never Counseling given: Yes Adopted: No Caregiver/support person: No Lives independently: Yes Household members: family Housing: House Marital status: Single Number of children: 2 (recently lost son in april 2020) Number of grandchildren: 0 Highest education level completed: High School Graduate service: No Current occupational status: disabled Current occupational exposures/hazards: No Pets and animals: No History of recent travel: No Leisure activites: games Sexually active: No Current gender identity: Male Yuli/Sabianist: Jain Special yuli needs: No Agree to transfusion: Yes Financial difficulty paying for basics: Hard Additional social history: Pt is not able to process his grief over the recent of his child. He is on the spectrum, suffers from mental health issues, and does not feel supported by family. 

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
[2021-05-10] MEDS: sodium chloride 0.9% 1,000 ML 30 ML IV (07:37)
[2021-05-10] MEDS: lidocaine 1% INJ 20 mL XX (08:50)
[2021-05-10] MEDS: neomycin-poly-bacitracin oint 28 gm 28 APPLIC (09:00)
[2021-05-10 09:05] VITALS: BP 90/59; PULSE 61; RESP 12; TEMP 36.6; O2SAT 99
--- NOTE | 2021-05-10 09:05 | PM.OP ---
Operative Report Date of procedure: May 10, 2021 Pre-op diagnosis: 1. History of colon polyps 2. Constipation 3. Skin lesion right pinna Post-op diagnosis: 1. Sigmoid polyps x4 removed with cold biopsy forceps 2. Internal hemorrhoids 3. 0.75 x 0.75 cm skin lesion right pinna Procedure done: 1. Colonoscopy with polypectomy using cold biopsy forceps 2. Excision of skin lesion right pinna measuring 0.75 x 0.75 cm Pathology: 1. Sigmoid polyps 2. Skin lesion right pinna Surgeon: Noel Hall Anesthesia: MAC and Local Condition: stable Disposition: PACU Procedure: The patient was taken to the operating room and placed in left lateral position under MAC. A colonoscope was introduced and advanced up to the cecum and slowly withdrawn. The colon prep was good. Cecum: Normal Ascending colon: Normal Transverse colon: Normal Descending colon: Normal Sigmoid colon: 3 mm sessile polyps x4 removed with cold biopsy forceps Rectum: Internal hemorrhoids FUENTES: Internal hemorrhoids The patient's right pinna was prepped and draped in a sterile manner. 1% lidocaine with 0.5% Marcaine was infiltrated underneath the skin lesion and the lesion measuring about 0.75 cm x 0.75 cm was excised using electrocautery. The wound was covered with antibiotic cream and sterile dressing. The patient was transferred to recovery room in stable condition.
[2021-05-10 09:10] VITALS: BP 98/64; PULSE 59; RESP 14; O2SAT 99
[2021-05-10 09:15] VITALS: BP 106/80; PULSE 66; RESP 18; O2SAT 96
[2021-05-10 09:20] VITALS: BP 124/82; PULSE 62; RESP 16; TEMP 36.4; O2SAT 95
[2021-05-10 09:30] VITALS: BP 121/69; PULSE 63; RESP 18; O2SAT 96
== END 2021-05-10 09:58 | disposition home or self-care (01) ==
PROVIDERS: PCP Nurse Practitioner Family; Visit Provider Surgery
PROC: (CPT 11441; principal; 2021-05-10 08:10)
PROC: 0DJD8ZZ Inspection of Lower Intestinal Tract, Via Natural or Artificial Opening Endoscopic (ICD-10-PCS; CPT 45378; 2021-05-10 08:10)
DX: K59.00 Constipation, unspecified (principal); Z86.010 Personal history of colon polyps; L91.8 Other hypertrophic disorders of the skin; K21.9 Gastro-esophageal reflux disease without esophagitis; F84.0 Autistic disorder; F32.9 Major depressive disorder, single episode, unspecified; F43.10 Post-traumatic stress disorder, unspecified; F17.210 Nicotine dependence, cigarettes, uncomplicated
CPT/HCPCS: 11441; 45380; 88304; 88305; J2704; J3010; J3490; J7030

== ENCOUNTER → 2021-05-18 09:01 | Outpatient (BNVA) | payer MEDICARE, MEDICAID, SELFPAY | PROVIDERS: PCP Nurse Practitioner Family; Visit Provider Surgery | DX: Z98.890 Other specified postprocedural states (principal); Z86.010 Personal history of colon polyps; F17.210 Nicotine dependence, cigarettes, uncomplicated; Z87.19 Personal history of other diseases of the digestive system | CPT/HCPCS: 99213 ==

== ENCOUNTER → 2021-07-05 09:22 | Outpatient (BNVA) | payer MEDICARE, MEDICAID, OTHER, SELFPAY | PROVIDERS: PCP Nurse Practitioner Family; Visit Provider Psychiatry & Neurology Psychiatry | DX: F41.9 Anxiety disorder, unspecified (principal); F32.9 Major depressive disorder, single episode, unspecified; F43.10 Post-traumatic stress disorder, unspecified; F84.0 Autistic disorder; F60.9 Personality disorder, unspecified; F60.7 Dependent personality disorder | CPT/HCPCS: 99214 ==

== ENCOUNTER → 2021-08-14 16:49 | Outpatient (BNVA) | payer MEDICARE, MEDICAID, SELFPAY | PROVIDERS: PCP Nurse Practitioner Family; Visit Provider Psychiatry & Neurology Psychiatry | DX: F32.A Depression, unspecified (principal); F32.9 Major depressive disorder, single episode, unspecified; F43.10 Post-traumatic stress disorder, unspecified; F84.0 Autistic disorder; F60.9 Personality disorder, unspecified; F60.7 Dependent personality disorder | CPT/HCPCS: 99214 ==

== ENCOUNTER → 2021-09-10 13:14 | Outpatient (BNVA) | payer MEDICARE, MEDICAID, SELFPAY | PROVIDERS: PCP Nurse Practitioner Family; Visit Provider Psychiatry & Neurology Psychiatry | DX: Z79.899 Other long term (current) drug therapy (principal) | CPT/HCPCS: 80053; 80061; 83036; 84443 ==

== ENCOUNTER 2023-02-04 12:33 | Emergency (ER) | payer MEDICARE, MEDICAID, SELFPAY ==
[2023-02-04 12:44] VITALS: BP 131/91; PULSE 81; RESP 17; TEMP 37.3; O2SAT 99; BMI 30.7
--- NOTE | 2023-02-04 12:56 | US_ITS ---
WS: [id number] INDICATION: LEFT Achilles tendon gastroc injury TECHNIQUE: Ultrasound soft tissue area of concern FINDINGS: Ultrasound LEFT calf in the area of concern. Diffuse subcutaneous edema with intramuscular echogenic hematoma in the area of concern measuring approximately 2.2 x 1.4 x 1.9 cm compatible with acute muscle or tendon tear. This can be further evaluated with MRI for better anatomic detail. No ot her suspicious findings. IMPRESSION: See above
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
[2023-02-04] MEDS: morphine 4 mg/mL SDV 1 mL IM (14:05)
--- NOTE | 2023-02-04 16:07 | DCPLANNER ---
Message sent to Ortho for follow up Gastrocnemius injury
== END 2023-02-04 14:31 | disposition home or self-care (01) ==
PROVIDERS: Emergency Provider Physician Assistant; PCP Nurse Practitioner Family
DX: S86.112A Strain of other muscle(s) and tendon(s) of posterior muscle group at lower leg level, left leg, initial encounter (principal); F17.210 Nicotine dependence, cigarettes, uncomplicated; F84.0 Autistic disorder; W01.0XXA Fall on same level from slipping, tripping and stumbling without subsequent striking against object, initial encounter
CPT/HCPCS: 76882; 96372; 97760; 99284; E0114; J2270; L4361

== ENCOUNTER → 2023-02-05 14:18 | Outpatient (BNVA) | payer MEDICARE, MEDICAID, SELFPAY | PROVIDERS: PCP Nurse Practitioner Family; Visit Provider Podiatrist Foot & Ankle Surgery | DX: S86.112A Strain of other muscle(s) and tendon(s) of posterior muscle group at lower leg level, left leg, initial encounter; W01.0XXA Fall on same level from slipping, tripping and stumbling without subsequent striking against object, initial encounter | CPT/HCPCS: 99203 ==

== ENCOUNTER 2023-02-20 15:04 | Outpatient (CLI) | payer MEDICARE, MEDICAID, SELFPAY ==
--- NOTE | 2023-02-20 15:15 | MR_ITS ---
WS: [id number] MRI OF THE LEFT LOWER LEG WITHOUT GADOLINIUM ENHANCEMENT. INDICATION: Evaluate gastroc tear TECHNIQUE: Coronal T1, coronal STIR, sagittal T1, sagittal STIR, axial T2 fat-sat, axial PD imaging FINDINGS: Comparison ultrasound 02/04/2023 Subcutaneous edema with intramuscular hematoma in the LEFT lower leg in the area of palpable concern. Findings compatible with intramuscular tear involving the soleus. This abuts the lateral head of the gastrocnemius. No other suspicious areas. Normal bone marrow signal. No other suspicious findings. IMPRESSION: 1. Focal edema and hematoma involving the lateral calf in the area of concern compatible with intram uscular tear involving the soleus. 2. Edema and hematoma abuts the lateral head of the gastrocnemius with mild associated mass effect. 3. No other suspicious findings.
== END 2023-02-20 15:05 | disposition home or self-care (01) ==
LOC: RAD 15:05
PROVIDERS: PCP Nurse Practitioner Family; Visit Provider Podiatrist Foot & Ankle Surgery
DX: S86.112A Strain of other muscle(s) and tendon(s) of posterior muscle group at lower leg level, left leg, initial encounter (principal); X58.XXXA Exposure to other specified factors, initial encounter; R60.0 Localized edema
CPT/HCPCS: 73718

== ENCOUNTER → 2023-02-27 09:35 | Outpatient (BNVA) | payer MEDICARE, MEDICAID, SELFPAY | PROVIDERS: PCP Nurse Practitioner Family; Visit Provider Podiatrist Foot & Ankle Surgery | DX: S86.112A Strain of other muscle(s) and tendon(s) of posterior muscle group at lower leg level, left leg, initial encounter; W01.0XXA Fall on same level from slipping, tripping and stumbling without subsequent striking against object, initial encounter | CPT/HCPCS: 99213 ==